=== PATIENT | male | born 1960 ===

== ENCOUNTER 2018-03-10 11:21 | Emergency (ER) | payer OTHER ==
[2018-03-10 11:22] VITALS: BMI 28.4
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
[2018-03-10 11:49] VITALS: BP 132/87; PULSE 75; RESP 16; TEMP 98.5; O2SAT 96
--- NOTE | 2018-03-10 12:22 | RAD ---
Date of service: 03/10/2018 PROCEDURE: Right Knee Radiographs. HISTORY: r/o fx COMPARISON: None. FINDINGS: BONES: Normal. No fracture. JOINTS: Normal. No osteoarthritis. JOINT EFFUSION: None. OTHER FINDINGS: None. IMPRESSION: Normal radiographs of the right knee.
== END 2018-03-10 12:39 | disposition home or self-care (01) ==
LOC: C.ER 11:21
DX: M25.561 Pain in right knee (principal)

== ENCOUNTER 2018-03-19 14:36 | Emergency (ER) | payer OTHER ==
[2018-03-19 14:44] VITALS: BP 147/88; PULSE 78; RESP 20; TEMP 98.2; O2SAT 95; BMI 28.7
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
== END 2018-03-19 15:36 | disposition home or self-care (01) ==
LOC: C.ER 14:36
DX: S39.012A Strain of muscle, fascia and tendon of lower back, initial encounter (principal); S16.1XXA Strain of muscle, fascia and tendon at neck level, initial encounter; V49.9XXA Car occupant (driver) (passenger) injured in unspecified traffic accident, initial encounter; N40.0 Benign prostatic hyperplasia without lower urinary tract symptoms
CPT/HCPCS: 96372; 99285; J1885